=== PATIENT | female | born 1945 | race Two or more races ===

== ENCOUNTER 2024-08-01 20:11 | Emergency (ER) | payer OTHER ==
[~2024-08-01] VITALS: Ht 154.9 cm; Wt 81.6 kg
[2024-08-01] MEDS ORDERED: ARBLI10 MG/1 ML (20:35)
[2024-08-01] MEDS ORDERED: CHILDREN'S ASPI81 MG (20:37)
[2024-08-01] MEDS ORDERED: CARVEDILOL ER40 MG (20:37)
[2024-08-01] MEDS ORDERED: LEVALBUTEROL HCL 1.25 MG/3 ML SOLUTION IH SCH (22:30)
[2024-08-01 23:00] LABS: BASO % 0.7 % (0.1-1.2); EOS # 0.22 (0.04-0.54); HEMATOCRIT 43.9 % (34.1-44.9); HEMOGLOBIN 14.4 g/dL (11.2-15.7); LYMPH # 0.93 (1.18-3.74); LYMPH % 12.8 % (19.3-53.1); MEAN CORPUSCULAR HEMOGLOBIN 29.8 pg (25.6-32.2); MONO # 0.66 (0.24-0.82); MONO % 9.1 % (4.7-12.5); NEUT % 74.1 % (34.0-71.1); PLATELET COUNT 216 K/uL (163-369); RED BLOOD COUNT 4.84 M/uL (3.93-5.22); RED CELL DISTRIBUTION WIDTH 13.2 % (11.6-14.4)
[2024-08-01 23:24] LABS: ALBUMIN 3.1 gm/dL (3.4-5.0); BILIRUBIN TOTAL 0.47 mg/dL (0.3-1.2); CALCIUM 8.7 mg/dL (8.5-10.1); CREATININE SERUM 1.12 mg/dL (0.55-1.02); GFR 46.81; POTASSIUM 5.17 mEq/L (3.5-5.1); TOTAL PROTEIN 7.1 gm/dL (6.4-8.2)
[2024-08-01] MEDS ORDERED: LEVALBUTEROL HCL 0.63 MG/3 ML SOLUTION IH ONE (23:32)
[2024-08-02 01:24] LABS: ABG PH 7.416 (7.35-7.45); ABG PO2 106.2 mmHg (80-100); BASE EXCESS 1.3 mmol/l; SaO2 98.2 %; Tco2 27.3 mmol/l; allen test SATISFACTORY; o2 28 %; puncture site RADIAL LEFT
[2024-08-02 01:25] LABS: ABG pCO2 41.4 mmHg (35-45); mode NASAL CANNULA
== END 2024-08-02 02:23 | disposition home or self-care (01) ==
LOC: ER 21:30
DX: J45.901 Unspecified asthma with (acute) exacerbation (principal)